=== PATIENT | male | born 1935 | race Caucasian/White ===

== ENCOUNTER → 2022-09-25 | Outpatient (CLI) | payer MEDICARE ==
[2022-09-25 14:33] LABS: BASOPHILS ABSOLUTE AUTO 0.04 K/mm3 (0.00-0.23); BASOPHILS PERCENT AUTO 1 % (0-2); EOSINOPHILS ABSOLUTE AUTO 0.11 K/mm3 (0.00-0.68); EOSINOPHILS PERCENT AUTO 1 % (0-6); Hematocrit 46.4 % (37.0-53.0); Hemoglobin 15.3 g/dL (13.5-17.5); IMMATURE GRAN ABSOLUTE AUTO 0.03 K/mm3 (0.00-0.10); IMMATURE GRAN PERCENT AUTO 0 % (0-1); LYMPHOCYTES ABSOLUTE AUTO 1.96 K/mm3 (0.84-5.20); LYMPHOCYTES PERCENT AUTO 25 % (21-46); MONOCYTES ABSOLUTE AUTO 0.61 K/mm3 (0.16-1.47); MONOCYTES PERCENT AUTO 8 % (4-13); Mean Corpuscular HGB 32.3 pg (26.0-34.0); Mean Corpuscular Volume 98 fL (80-100); NEUTROPHILS ABSOLUTE AUTO 5.05 K/mm3 (1.96-9.15); NEUTROPHILS PERCENT AUTO 65 % (41-73); RDW Coefficient Variation 13.2 % (11.7-14.2); RDW Standard Deviation 47.8 fL (35.1-46.3); Red Blood Cell Count 4.74 M/mm3 (4.30-5.90)
[2022-09-25 14:43] LABS: Albumin, Blood 3.5 g/dL (3.4-5.0); Albumin/Globulin Ratio 0.7 (0.8-1.8); Bilirubin, Total 1.7 mg/dL (0.1-1.0); Bun/Creatinine Ratio 12.1 (12.0-20.0); Calcium, Blood 9.2 mg/dL (8.5-10.1); Creatinine, Blood 1.4 mg/dL (0.60-1.20); Globulin, Blood 4.7 g/dL (2.2-4.0); Potassium, Blood 4.1 mmol/L (3.5-5.5); Total Protein, Blood 8.2 g/dL (6.4-8.2)
[2022-09-25 14:51] LABS: Mean Platelet Volume 11.2 fL (9.1-12.4)
[2022-09-25 16:04] LABS: Platelet Count 115 K/mm3 (150-400)
== END | disposition home or self-care (01) ==
LOC: LAB SHORT 14:27 → LAB 14:27
PROVIDERS: Emergency Medicine
DX: R60.0 Localized edema (principal)
CPT/HCPCS: 80053; 85025

== ENCOUNTER 2024-11-21 02:57 | Day surgery (SDC) | payer MEDICARE ==
[2024-11-21] MEDS ORDERED: Sodium Hypochlorite 0.125% 20ML BTL ONE (13:59)
== END 2024-11-21 23:00 | disposition home or self-care (01) ==
LOC: WOUND 02:57
DX: L97.515 Non-pressure chronic ulcer of other part of right foot with muscle involvement without evidence of necrosis (principal); I87.2 Venous insufficiency (chronic) (peripheral); I83.899 Varicose veins of unspecified lower extremity with other complications; I25.10 Atherosclerotic heart disease of native coronary artery without angina pectoris; N18.31 Chronic kidney disease, stage 3a; I48.91 Unspecified atrial fibrillation; I73.9 Peripheral vascular disease, unspecified; Z87.891 Personal history of nicotine dependence
CPT/HCPCS: A9270; G0463

== ENCOUNTER 2024-11-23 23:00 | Day surgery (SDC) | payer MEDICARE | END 2024-11-23 23:01 | disposition home or self-care (01) | LOC: WOUND 23:00 | DX: L97.515 Non-pressure chronic ulcer of other part of right foot with muscle involvement without evidence of necrosis (principal); I87.2 Venous insufficiency (chronic) (peripheral); I83.899 Varicose veins of unspecified lower extremity with other complications ==

== ENCOUNTER 2024-11-29 03:42 | Day surgery (SDC) | payer MEDICARE ==
[2024-11-29] MEDS ORDERED: Lidocaine HCl 4% Cream 5 GM ONE (14:50)
[2024-11-29] MEDS ORDERED: Lidocaine HCl 1% 20 ML MDV ONE (15:44)
[2024-11-29] MEDS ORDERED: Silver Nitr/Potassium Nitrate 1 EA APPL ONE (16:02)
== END 2024-11-29 23:00 | disposition home or self-care (01) ==
LOC: WOUND 03:42
DX: L97.512 Non-pressure chronic ulcer of other part of right foot with fat layer exposed (principal); I87.2 Venous insufficiency (chronic) (peripheral); I83.899 Varicose veins of unspecified lower extremity with other complications
CPT/HCPCS: A9270

== ENCOUNTER 2024-12-07 03:23 | Day surgery (SDC) | payer MEDICARE | END 2024-12-07 23:00 | disposition home or self-care (01) | LOC: WOUND 03:23 | DX: L97.313 Non-pressure chronic ulcer of right ankle with necrosis of muscle (principal); I87.2 Venous insufficiency (chronic) (peripheral); I83.899 Varicose veins of unspecified lower extremity with other complications ==

== ENCOUNTER 2024-12-12 03:22 | Day surgery (SDC) | payer MEDICARE | END 2024-12-12 23:00 | disposition home or self-care (01) | LOC: WOUND 03:22 | DX: I83.015 Varicose veins of right lower extremity with ulcer other part of foot (principal); I83.013 Varicose veins of right lower extremity with ulcer of ankle; L97.312 Non-pressure chronic ulcer of right ankle with fat layer exposed; L97.512 Non-pressure chronic ulcer of other part of right foot with fat layer exposed; L97.515 Non-pressure chronic ulcer of other part of right foot with muscle involvement without evidence of necrosis; I87.2 Venous insufficiency (chronic) (peripheral) ==

== ENCOUNTER 2024-12-20 01:29 | Day surgery (SDC) | payer MEDICARE ==
[2024-12-20] MEDS ORDERED: Lidocaine HCl 4% Cream 5 GM ONE (12:32)
== END 2024-12-20 23:00 | disposition home or self-care (01) ==
LOC: WOUND 01:29
DX: L97.512 Non-pressure chronic ulcer of other part of right foot with fat layer exposed (principal); L97.312 Non-pressure chronic ulcer of right ankle with fat layer exposed; I83.899 Varicose veins of unspecified lower extremity with other complications; I87.2 Venous insufficiency (chronic) (peripheral)
CPT/HCPCS: A9270

== ENCOUNTER 2024-12-27 02:18 | Day surgery (SDC) | payer MEDICARE ==
[2024-12-27] MEDS ORDERED: Lidocaine HCl 4% Cream 5 GM ONE (12:54)
== END 2024-12-27 23:00 ==
LOC: WOUND 02:18
DX: L97.312 Non-pressure chronic ulcer of right ankle with fat layer exposed (principal); L97.412 Non-pressure chronic ulcer of right heel and midfoot with fat layer exposed; L97.512 Non-pressure chronic ulcer of other part of right foot with fat layer exposed; I87.2 Venous insufficiency (chronic) (peripheral)
CPT/HCPCS: A9270

== ENCOUNTER 2025-01-03 03:36 | Day surgery (SDC) | payer MEDICARE ==
[2025-01-03] MEDS ORDERED: Lidocaine HCl 4% Cream 5 GM ONE (15:19)
== END 2025-01-03 23:00 | disposition home or self-care (01) ==
LOC: WOUND 03:36
DX: L97.312 Non-pressure chronic ulcer of right ankle with fat layer exposed (principal); L97.512 Non-pressure chronic ulcer of other part of right foot with fat layer exposed; I87.2 Venous insufficiency (chronic) (peripheral)
CPT/HCPCS: A9270

== ENCOUNTER 2025-01-10 04:02 | Day surgery (SDC) | payer MEDICARE ==
[2025-01-10] MEDS ORDERED: Lidocaine HCl 4% Cream 5 GM ONE (14:56)
== END 2025-01-10 23:00 | disposition home or self-care (01) ==
LOC: WOUND 04:02
DX: L08.9 Local infection of the skin and subcutaneous tissue, unspecified (principal); L97.312 Non-pressure chronic ulcer of right ankle with fat layer exposed; L97.512 Non-pressure chronic ulcer of other part of right foot with fat layer exposed; I87.2 Venous insufficiency (chronic) (peripheral); I83.899 Varicose veins of unspecified lower extremity with other complications; I25.10 Atherosclerotic heart disease of native coronary artery without angina pectoris
CPT/HCPCS: A9270

== ENCOUNTER 2025-01-17 01:56 | Day surgery (SDC) | payer MEDICARE ==
[2025-01-17] MEDS ORDERED: Lidocaine HCl 4% Cream 5 GM ONE (14:52)
== END 2025-01-17 23:00 | disposition home or self-care (01) ==
LOC: WOUND 01:56
DX: L97.312 Non-pressure chronic ulcer of right ankle with fat layer exposed (principal); L08.9 Local infection of the skin and subcutaneous tissue, unspecified; I87.2 Venous insufficiency (chronic) (peripheral); I25.10 Atherosclerotic heart disease of native coronary artery without angina pectoris
CPT/HCPCS: A9270

== ENCOUNTER 2025-01-31 02:16 | Day surgery (SDC) | payer MEDICARE ==
[2025-01-31] MEDS ORDERED: Lidocaine HCl 4% Cream 5 GM ONE (12:56)
== END 2025-01-31 23:00 | disposition home or self-care (01) ==
LOC: WOUND 02:16
DX: L97.312 Non-pressure chronic ulcer of right ankle with fat layer exposed (principal); L97.512 Non-pressure chronic ulcer of other part of right foot with fat layer exposed; L08.89 Other specified local infections of the skin and subcutaneous tissue; I87.2 Venous insufficiency (chronic) (peripheral); I25.10 Atherosclerotic heart disease of native coronary artery without angina pectoris
CPT/HCPCS: A9270

== ENCOUNTER 2025-02-07 03:26 | Day surgery (SDC) | payer MEDICARE ==
[2025-02-07] MEDS ORDERED: Lidocaine HCl 4% Cream 5 GM ONE (13:16)
== END 2025-02-07 23:10 | disposition home or self-care (01) ==
LOC: WOUND 03:26
DX: L97.312 Non-pressure chronic ulcer of right ankle with fat layer exposed (principal); I87.2 Venous insufficiency (chronic) (peripheral); S91.101A Unspecified open wound of right great toe without damage to nail, initial encounter; L08.9 Local infection of the skin and subcutaneous tissue, unspecified; X58.XXXA Exposure to other specified factors, initial encounter; I25.10 Atherosclerotic heart disease of native coronary artery without angina pectoris
CPT/HCPCS: A9270

== ENCOUNTER 2025-02-14 00:48 | Day surgery (SDC) | payer MEDICARE ==
[2025-02-14] MEDS ORDERED: Lidocaine HCl 4% Cream 5 GM ONE (13:39)
== END 2025-02-14 23:00 | disposition home or self-care (01) ==
LOC: WOUND 00:48
DX: L97.512 Non-pressure chronic ulcer of other part of right foot with fat layer exposed (principal); L97.812 Non-pressure chronic ulcer of other part of right lower leg with fat layer exposed; I87.2 Venous insufficiency (chronic) (peripheral); I83.899 Varicose veins of unspecified lower extremity with other complications; I25.10 Atherosclerotic heart disease of native coronary artery without angina pectoris
CPT/HCPCS: A6196; A9270

== ENCOUNTER 2025-02-21 00:31 | Day surgery (SDC) | payer MEDICARE | END 2025-02-21 23:00 | disposition home or self-care (01) | LOC: WOUND 00:31 | DX: I83.015 Varicose veins of right lower extremity with ulcer other part of foot (principal); L97.515 Non-pressure chronic ulcer of other part of right foot with muscle involvement without evidence of necrosis; I83.018 Varicose veins of right lower extremity with ulcer other part of lower leg; L97.812 Non-pressure chronic ulcer of other part of right lower leg with fat layer exposed; I87.2 Venous insufficiency (chronic) (peripheral) | CPT/HCPCS: A6196 ==

== ENCOUNTER 2025-02-28 00:16 | Day surgery (SDC) | payer MEDICARE | END 2025-02-28 23:00 | disposition home or self-care (01) | LOC: WOUND 00:16 | DX: S91.001A Unspecified open wound, right ankle, initial encounter (principal); X58.XXXA Exposure to other specified factors, initial encounter | CPT/HCPCS: A6196 ==

== ENCOUNTER 2025-03-07 02:12 | Day surgery (SDC) | payer MEDICARE | END 2025-03-07 23:00 | disposition home or self-care (01) | LOC: WOUND 02:12 | DX: L97.312 Non-pressure chronic ulcer of right ankle with fat layer exposed (principal); I87.2 Venous insufficiency (chronic) (peripheral); I25.10 Atherosclerotic heart disease of native coronary artery without angina pectoris | CPT/HCPCS: G0463 ==

== ENCOUNTER 2025-03-28 03:02 | Day surgery (SDC) | payer MEDICARE ==
[2025-03-28] MEDS ORDERED: Lidocaine HCl 4% Cream 5 GM ONE (13:45)
== END 2025-03-28 23:00 | disposition home or self-care (01) ==
LOC: WOUND 03:02
DX: L97.312 Non-pressure chronic ulcer of right ankle with fat layer exposed (principal); I87.2 Venous insufficiency (chronic) (peripheral); I25.10 Atherosclerotic heart disease of native coronary artery without angina pectoris
CPT/HCPCS: A9270

== ENCOUNTER 2025-04-04 00:24 | Day surgery (SDC) | payer MEDICARE ==
[2025-04-04] MEDS ORDERED: Lidocaine HCl 4% Cream 5 GM ONE (13:09)
== END 2025-04-04 23:00 | disposition home or self-care (01) ==
LOC: WOUND 00:24
DX: L97.312 Non-pressure chronic ulcer of right ankle with fat layer exposed (principal); I87.2 Venous insufficiency (chronic) (peripheral); I83.899 Varicose veins of unspecified lower extremity with other complications; Z88.0 Allergy status to penicillin; Z88.1 Allergy status to other antibiotic agents
CPT/HCPCS: A9270

== ENCOUNTER 2025-04-11 02:41 | Day surgery (SDC) | payer MEDICARE ==
[2025-04-11] MEDS ORDERED: Lidocaine HCl 4% Cream 5 GM ONE (12:56)
== END 2025-04-11 23:00 | disposition home or self-care (01) ==
LOC: WOUND 02:41
DX: L97.312 Non-pressure chronic ulcer of right ankle with fat layer exposed (principal); I87.2 Venous insufficiency (chronic) (peripheral); I25.10 Atherosclerotic heart disease of native coronary artery without angina pectoris
CPT/HCPCS: A9270

== ENCOUNTER 2025-04-17 01:32 | Day surgery (SDC) | payer MEDICARE | END 2025-04-17 23:00 | disposition home or self-care (01) | LOC: WOUND 01:32 | DX: I83.013 Varicose veins of right lower extremity with ulcer of ankle (principal); L97.312 Non-pressure chronic ulcer of right ankle with fat layer exposed; I87.2 Venous insufficiency (chronic) (peripheral); I25.10 Atherosclerotic heart disease of native coronary artery without angina pectoris | CPT/HCPCS: A6196 ==

== ENCOUNTER 2025-04-25 00:40 | Day surgery (SDC) | payer MEDICARE ==
[2025-04-25] MEDS ORDERED: Lidocaine HCl 4% Cream 5 GM ONE (11:20)
== END 2025-04-25 23:00 | disposition home or self-care (01) ==
LOC: WOUND 00:40
DX: I83.013 Varicose veins of right lower extremity with ulcer of ankle (principal); L97.312 Non-pressure chronic ulcer of right ankle with fat layer exposed; I87.2 Venous insufficiency (chronic) (peripheral); I25.10 Atherosclerotic heart disease of native coronary artery without angina pectoris
CPT/HCPCS: A9270

== ENCOUNTER 2025-05-02 00:24 | Day surgery (SDC) | payer MEDICARE ==
[2025-05-02] MEDS ORDERED: Lidocaine HCl 4% Cream 5 GM ONE (10:24)
== END 2025-05-02 23:00 | disposition home or self-care (01) ==
LOC: WOUND 00:24
DX: L97.312 Non-pressure chronic ulcer of right ankle with fat layer exposed (principal); L89.892 Pressure ulcer of other site, stage 2; I87.2 Venous insufficiency (chronic) (peripheral); I25.10 Atherosclerotic heart disease of native coronary artery without angina pectoris
CPT/HCPCS: A9270

== ENCOUNTER 2025-05-07 07:09 | Day surgery (SDC) | payer MEDICARE ==
[2025-05-07] MEDS ORDERED: Lidocaine HCl 4% Cream 5 GM ONE (14:28)
== END 2025-05-07 22:00 | disposition home or self-care (01) ==
LOC: WOUND 07:09
DX: L97.312 Non-pressure chronic ulcer of right ankle with fat layer exposed (principal); L89.892 Pressure ulcer of other site, stage 2; I87.2 Venous insufficiency (chronic) (peripheral); I25.10 Atherosclerotic heart disease of native coronary artery without angina pectoris
CPT/HCPCS: A9270

== ENCOUNTER 2025-05-14 07:58 | Day surgery (SDC) | payer MEDICARE ==
[2025-05-14] MEDS ORDERED: Lidocaine HCl 4% Cream 5 GM ONE (14:37)
== END 2025-05-14 23:33 | disposition home or self-care (01) ==
LOC: WOUND 07:58
DX: L97.312 Non-pressure chronic ulcer of right ankle with fat layer exposed (principal); I25.10 Atherosclerotic heart disease of native coronary artery without angina pectoris; L89.892 Pressure ulcer of other site, stage 2
CPT/HCPCS: A9270

== ENCOUNTER 2025-05-23 04:26 | Day surgery (SDC) | payer MEDICARE ==
[2025-05-23] MEDS ORDERED: Lidocaine HCl 4% Cream 5 GM ONE (13:23)
== END 2025-05-23 23:00 | disposition home or self-care (01) ==
LOC: WOUND 04:26 → EDSTATUS 09:30 → WOUND 09:31
DX: L97.312 Non-pressure chronic ulcer of right ankle with fat layer exposed (principal); L89.892 Pressure ulcer of other site, stage 2; I87.2 Venous insufficiency (chronic) (peripheral); I25.10 Atherosclerotic heart disease of native coronary artery without angina pectoris
CPT/HCPCS: A9270

== ENCOUNTER 2025-06-04 03:40 | Day surgery (SDC) | payer MEDICARE ==
[2025-06-04] MEDS ORDERED: Lidocaine HCl 4% Cream 5 GM ONE (11:20)
== END 2025-06-04 23:00 | disposition home or self-care (01) ==
LOC: WOUND 03:40
DX: L97.312 Non-pressure chronic ulcer of right ankle with fat layer exposed (principal); I87.2 Venous insufficiency (chronic) (peripheral); I25.10 Atherosclerotic heart disease of native coronary artery without angina pectoris
CPT/HCPCS: A9270

== ENCOUNTER 2025-06-11 14:30 | Day surgery (SDC) | payer MEDICARE ==
[2025-06-11] MEDS ORDERED: Lidocaine HCl 4% Cream 5 GM ONE (14:44)
== END 2025-06-11 23:00 | disposition home or self-care (01) ==
LOC: WOUND 14:30
DX: L97.312 Non-pressure chronic ulcer of right ankle with fat layer exposed (principal); S90.821D Blister (nonthermal), right foot, subsequent encounter; X58.XXXD Exposure to other specified factors, subsequent encounter; I87.2 Venous insufficiency (chronic) (peripheral); I25.10 Atherosclerotic heart disease of native coronary artery without angina pectoris
CPT/HCPCS: A6196; A9270